=== PATIENT | female | born 1960 | race Caucasian/White ===

== ENCOUNTER → 2017-01-12 | Outpatient (CLI) | payer OTHER ==
[~2017-01-12] MED LIST: BND25X PO; NEOM0.1S10 OPB
--- NOTE | 2017-01-12 15:37 | MAMMOGRAPHY REPORT ---
BILATERAL DIGITAL SCREENING MAMMOGRAM TOMOSYNTHESIS WITH CAD: 01/12/2017 CLINICAL HISTORY: Routine screening. Patient has no complaints. TECHNIQUE: Breast tomosynthesis in addition to standard 2D mammography was performed. Current study was also evaluated with a Computer Aided Detection (CAD) system. COMPARISON: Comparison is made to exams dated: 05/20/2015 mammogram, 01/28/2014 mammogram, 01/27/2013 m ammogram, 01/22/2012 mammogram, 12/05/2010 mammogram, and 11/23/2009 mammogram - [facility]. BREAST COMPOSITION: The tissue of both breasts is heterogeneously dense, which may obscure small mas ses. FINDINGS: No suspicious masses, calcifications, or areas of architectural distortion are noted in ei ther breast. There has been no significant interval change compared to prior exams. IMPRESSION: ACR BI-RADS CATEGORY 1: NEGATIVE There is no mammographic evidence of malignancy. A 1 year screening mammogram is recommended. The pa tient will receive written notification of the results. Approximately 10% of breast cancers are not detected with mammography. A negative mammographic report should not delay biopsy if a clinically suggestive mass is present. Loly Pope M.D. ah/:01/12/2017 13:01:39 Software Business Analyst: Latricia Carrasco RT(R)(M)(BD), [facility] letter sent: Normal 1/2 BI-RADS Code: ACR BI-RADS Category 1: Negative
== END | disposition home or self-care (01) ==
LOC: C.MAMM 09:40
PROVIDERS: ATTEND Nurse Practitioner
DX: Z12.31 Encounter for screening mammogram for malignant neoplasm of breast (principal)

== ENCOUNTER 2017-01-21 05:32 | Emergency (ER) | payer SELFPAY ==
[~2017-01-21] VITALS: Ht 160 cm; Wt 65.6 kg
[2017-01-21 05:36] VITALS: TEMP 36.7; Ht 160 cm; Wt 65.6 kg
[2017-01-21] MEDS ORDERED: FOLI1TAB7 PO (06:09)
[2017-01-21] MEDS ORDERED: METH2.5T PO (06:11)
--- NOTE | 2017-01-21 06:50 | EMERGENCY ROOM VISIT NOTE ---
History Report prepared by Jacy: Lamar Roque Under the Supervision of: Dr. Rachel Patiño D.O. First contact with patient: 05:47 Chief Complaint: CONGESTION Stated Complaint: COUGH,HEAD CONGESTION,PLUGGED EAR Nursing Triage Summary: patient presents with c/o bilateral ear pressure/pain with the right being worse than left .patient also complains of congestion and cough. History of Present Illness The patient is a 56 year old female who presents to the Emergency Room with complaints of persistent sinus congestion starting 4 days ago. The patient started having some cold symptoms with postnasal drip 2 weeks ago. 4 days ago, she started having a cough and facial pain. Then her ear plugged up and she began having ear pain which is worse on the right. She took some Advil for the pain. Later on, she had a stabbing pain in her right ear followed by bloody drainage from her ear. She has decreased hearing out of her right ear and she is hearing a hum. She had a fever yesterday of 100.6. She then had some sweats that night. She has had difficulty sleeping due to her cough. Her cough is dry. She feels sinus pressure, but nothing comes out when she blows her nose. She feels her right tonsil is sore. She started taking Augmentin twice daily 3 days ago. She denies any vomiting or diarrhea. She denies any history of ear infections or lung problems. The patient was started on methotrexate 6 months ago for rheumatoid arthritis. She has not had any problems since. She is an occasional smoker. She has a history of palindromic rheumatism. Source of History: patient Onset: 4 days ago Position: other (sinus) Quality: other (congestion) Timing: other (persistent) Associated Symptoms: + fevers, + diaphoresis, + cough, No vomiting, No diarrhea Note: Pt reports right ear pain/drainage. Review of Systems See HPI for pertinent positives & negatives. A total of 10 systems reviewed and were otherwise negative. Past Medical & Surgical Medical Problems: (1) Palindromic rheumatism (2) Rheumatoid arthritis Family History No pertinent family history stated. Social History Smoking Status: Current Some Day Smoker Marital Status: Occupation Status: employed Current/Historical Medications Scheduled Benzonatate (Tessalon Perles), 100 MG PO Q8 Folic Acid (Folvite), 1 MG PO DAILY Methotrexate (Methotrexate), 2.5 MG PO DIRECTED Allergies Coded Allergies: No Known Allergies (Unverified , 01/21/17) Physical Exam Vital Signs Date Time Temp Pulse Resp B/P (MAP) Pulse Ox O2 Delivery O2 Flow Rate FiO2 01/21/17 08:07 77 18 116/72 100 01/21/17 05:56 98 Room Air 01/21/17 05:36 36.7 89 20 128/77 100 Room Air Physical Exam GENERAL: alert, well appearing, well nourished, no distress, non-toxic HEAD: No sinus tenderness to percussion. EYE EXAM: normal conjunctiva, PERRL and EOM's grossly intact EARS: Left external auditory canal normal. No FB. Left TM normal, no bulging erythema dullness. Right external auditory canal normal. No blood or fluid noted. No edema. No FB. Right TM posteriorly has an area of bulging and fluid. Area of white fibrotic appearing material centrally. Mild erythema adjacent to that. No obvious perforation. OROPHARYNX: no exudate, no erythema, lips, buccal mucosa, and tongue normal and mucous membranes are moist NECK: supple, no nuchal rigidity, no adenopathy, non-tender, no mastoid tenderness LUNGS: Clear to auscultation. Normal chest wall mechanics HEART: no murmurs, S1 normal and S2 normal ABDOMEN: abdomen soft, non-tender, normo-active bowel sounds, no masses, no rebound or guarding. BACK: Back is symmetrical on inspection and there is no deformity, no midline tenderness, no CVA tenderness. SKIN: no rashes and no bruising UPPER EXTREMITIES: upper extremities are grossly normal. LOWER EXTREMITIES: No pitting edema. NEURO EXAM: Normal sensorium, cranial nerves II-XII grossly intact, normal speech, no gross weakness of arms, no gross weakness of legs. Medical Decision & Procedures ER Provider Diagnostic Interpretation: X-ray: I interpreted the following studies. Chest: A two view study of the chest was reviewed and was negative for cardiomegaly, effusion, pulmonary edema , focal infiltrate, wide mediastinum. Medications Administered Medications (Trade) Dose Ordered Sig/Madeline Route Start Time Stop Time Status Last Admin Dose Admin Benzonatate (Tessalon Perles Cap) 100 mg NOW ONCE PO 01/21/17 08:00 01/21/17 08:01 DC 01/21/17 08:03 100 MG ED Course 0620: The patient was evaluated in room B7. A complete history and physical exam was performed. 0748: I reevaluated the patient. I discussed the findings and the treatment plan with the patient. I discussed close follow up with ENT this week and symptoms to watch and return for. She verbalizes agreement and understanding. She was discharged home. 0800: Benzonatate 100 mg PO. Medical Decision Differential diagnosis: acute otitis media, acute otitis externa, mastoiditis, sinusitis, deep space infection, pharyngitis, trauma, foreign body in the ear, pneumonia, URI, bronchitis. Given pt's description of her progression of symptoms, likely pt began with URI and develops at ear infection which perforated and is now healing. Patient already 4 days and to Augmentin, I advised her to finish this. No evidence of otitis externa, no evidence of acute otitis media. Patient well-appearing here and otherwise no complaints, no evidence of bronchitis or pneumonia, sinusitis or mastoiditis otherwise. Discussed with patient need for close follow-up with ENT, symptoms to watch and return for, she verbalized understanding was agreeable with plan. Medication Reconcilliation Current Medication List: was personally reviewed by me Blood Pressure Screening Patient's blood pressure: Normal blood pressure Blood pressure disposition: Did not require urgent referral Impression Primary Impression: Perforated tympanic membrane Additional Impression: URI (upper respiratory infection) Scribe Attestation The scribe's documentation has been prepared under my direction and personally reviewed by me in its entirety. I confirm that the note above accurately reflects all work, treatment, procedures, and medical decision making performed by me. Departure Information Dispostion Home / Self-Care Prescriptions Benzonatate (Tessalon Perles) 100 Mg Cap 100 MG PO Q8 for Cough, #30 CAP Prov: Rachel Patiño, DO 01/21/17 Referrals Rin Nava, AlanN.Ulises (PCP) Patient Instructions [facility] Additional Instructions Please finish your course of antibiotics. Please make sure you're drinking plenty of water. Please consider taking a probiotic while you're on the antibiotic. May use Tylenol and ibuprofen as needed for pain. You may use the cough medication as needed. Please call the ear nose and throat doctor tomorrow to schedule close follow-up within the next 2-3 days. If you have any worsening pain or recurrent drainage from the ear, develop pain around the ear, headaches, vomiting, fevers, or coughing up blood, feel it is hard to breathe, or you've any other new concerns, please return the emergency room. Problem Qualifiers Primary Impression: Perforated tympanic membrane Laterality: right Qualified Codes: H72.91 - Unspecified perforation of tympanic membrane, right ear Additional Impression: URI (upper respiratory infection) URI type: unspecified URI Qualified Codes: J06.9 - Acute upper respiratory infection, unspecified
--- NOTE | 2017-01-21 07:51 | DIAGNOSTIC IMAGING REPORT ---
CHEST 2 VIEWS ROUTINE HISTORY: cough, fever COMPARISON: None. FINDINGS: The lungs are clear. Cardiac silhouette is normal in size. No pleural effusions. No pneumothorax. IMPRESSION: No acute process. Electronically signed by: Michael Munroe M.D. 01/21/2017 7:49 AM Dictated Date/Time: 01/21/2017 7:49 AM
[2017-01-21] MEDS ORDERED: BENZ100C84 PO (07:59)
[2017-01-21] MEDS ORDERED: BENZONATATE 100MG CAP PO ONE (08:00)
[2017-01-21 08:07] VITALS: BP 116/72; PULSE 77; O2SAT 100
== END 2017-01-21 08:05 | disposition home or self-care (01) ==
LOC: C.EDB 05:33
DX: H72.91 Unspecified perforation of tympanic membrane, right ear (principal); J06.9 Acute upper respiratory infection, unspecified; M06.9 Rheumatoid arthritis, unspecified; Z79.899 Other long term (current) drug therapy; Z72.0 Tobacco use